=== PATIENT | female | born 1995 | race Caucasian/White ===

== ENCOUNTER 2017-01-11 22:03 | Emergency (ER) | payer OTHER ==
[2017-01-11] MEDS ORDERED: Sodium Chloride 0.9% 1000 ML 1,000 ML IV STA (22:44)
[2017-01-11 22:49] LABS: BASOPHIL % 0.6 % (0.0-0.4); Eosinophil % 7.9 % (0.00-5.0); Granulocytes % 36.2 % (36.0-66.0); Lymphocytes % 48.1 % (24.0-44.0); Mean Cell Volume 82.2 fl (78-100); Mean Corpuscular Hemoglobin 26.7 pg (26-32); Mean Platelet Volume 9.4 fl (6-9.5); Monocytes % 7.2 % (0.0-12.0); Platelet Count 209 K/mm3 (150-450); Red Blood Count 4.38 M/mm3 (4.1-5.4); Red Cell Distribution Width 13.8 % (11.5-14.0); White Blood Count 6.9 K/mm3 (4.0-10.5)
[2017-01-11] MEDS ORDERED: Sodium Chloride 0.9% 1000 ML 1,000 ML ONE (23:04)
[2017-01-11 23:42] LABS: Bacteria None Seen; Clue Cells None Seen; Trichomonas None Seen; Yeast None Seen
--- NOTE | 2017-01-11 23:44 | ERPHSYRPT ---
- History of Present Illness Time Seen by Provider: 01/11/17 22:35 Source: patient Exam Limitations: clinical condition Patient Subjective Stated Complaint: pt states she has been having light vaginal bleeding for a few days. states she began having cramping today and when she went to the bathroom she passed something that she stated looked like a mucous plug. states cramping has continued and rates 8/10 at times Triage Nursing Assessment: pt alert and oreinted, asnwers questions appop. pt ambulatory with steady gait noted. respirations nonlabored with bonita ngs cta. abd soft and nontender with bowel sounds present. urine min and clear. Physician History: PATIENT COMPLAINS OF PELVIC CRAMPING WITH VAGINAL BLEEDING LIKE A MENSES THE PAST FEW DAYS. HAS BEEN ON DEPO INJECTIONS THE PAST FEW MONTHS. DENIES FEVER, NAUSEA, EMESIS OR DIARRHEA. Timing/Duration: day(s) Activites at Onset: none Quality: cramping Onset Location: pelvic pain Pain Radiation: none Severity of Pain-Max: moderate Severity of Pain-Current: moderate Prior abdominal problems: none Sexual intercourse history: non-contributory Modifying Factors: Improves With: nothing Associated Symptoms: denies symptoms Allergies/Adverse Reactions: No Known Drug Allergies Allergy (Verified 01/11/17 22:42) Home Medications: Paroxetine HCl [Paxil] 10 mg PO DAILY 01/11/17 [History] Hx Tetanus, Diphtheria Vaccination/Date Given: No (unknown) Hx Influenza Vaccination/Date Given: Yes Hx Pneumococcal Vaccination/Date Given: No - Review of Systems Constitutional: No Fever, No Chills Respiratory: No Cough, No Dyspnea Cardiac: No Chest Pain, No Edema, No Syncope Genitourinary Symptoms: Vaginal Bleeding - Past Medical History Pertinent Past Medical History: No (healthy) Neurological History: No Pertinent History ENT History: No Pertinent History Cardiac History: No Pertinent History Respiratory History: Asthma Endocrine Medical History: No Pertinent History Musculoskeletal History: No Pertinent History GI Medical History: No Pertinent History History: No Pertinent History Psycho-Social History: No Pertinent History Female Reproductive Disorders: No Pertinent History - Past Surgical History Past Surgical History: Yes Neuro Surgical History: No Pertinent History Cardiac: No Pertinent History Respiratory: No Pertinent History Gastrointestinal: No Pertinent History Genitourinary: No Pertinent History Musculoskeletal: Orthopedic Surgery Female Surgical History: No Pertinent History Other Surgical History: ACL L knee repaired - Social History Smoking Status: Never smoker Exposure to second hand smoke: No Drug Use: none Patient Lives Alone: No (works at [employer]) - Female History Hx Last Menstrual Period: on depo shot Hx Now: No (not sexually active) - Nursing Vital Signs Nursing Vital Signs: Initial Vital Signs Temperature 98.7 F Temperature Source Oral Pulse Rate 69 Respiratory Rate 16 Blood Pressure [Right Arm] 101/61 Pain Intensity 4 - Physical Exam General Appearance: no apparent distress, alert Eye Exam: PERRL/EOMI, eyes nml inspection Ears, Nose, Throat Exam: normal ENT inspection, TMs normal, pharynx normal, moist mucous membranes Neck Exam: normal inspection, non-tender, supple, full range of motion Respiratory Exam: normal breath sounds, lungs clear, No respiratory distress Cardiovascular Exam: regular rate/rhythm, normal heart sounds, normal peripheral pulses Gastrointestinal/Abdomen Exam: soft, normal bowel sounds, tenderness ( SUPRAPUBIC TENDERNESS), No mass Pelvic Exam: normal external exam, other (THERE IS NO BLOOD IN VAGINAL VAULT, UTERUS NORMAL SIZE NONTENDER, NO ADNEXAL TENDERNESS) Back Exam: normal inspection, normal range of motion, No CVA tenderness, No vertebral tenderness Extremity Exam: normal inspection, normal range of motion, pelvis stable Neurologic Exam: alert, oriented x 3, cooperative, housekeeper child care II-XII nml as tested, normal mood/affect, sensation nml, No motor deficits Skin Exam: normal color, warm, dry Lymphatic Exam: No adenopathy SpO2 Interpretation: normal SpO2: 98 Oxygen Delivery: Room Air Ordered Tests: Active Orders 24 hr Category Date Time Status IV Insertion STAT Care 01/11/17 22:44 Active Pelvic Exam Assist STAT Care 01/11/17 22:58 Active CBC W DIFF Stat Lab 01/11/17 22:40 Completed CULTURE,URINE Stat Lab 01/11/17 22:55 Received HCG, Quantitative (Inhouse) Stat Lab 01/11/17 22:40 Completed UA W/ MICROSCOPIC Stat Lab 01/11/17 22:55 Completed Wet Prep Stat Lab 01/11/17 22:55 Completed Medication Summary Generic Name Dose Route Start Last Admin Trade Name Freq PRN Reason Stop Dose Admin Sodium Chloride 1,000 mls @ 500 mls/hr 01/11/17 22:44 01/11/17 23:12 Sodium Chloride 0.9% 1000 Ml IV 01/12/17 00:43 500 mls/hr .Q2H STA Administration Discontinued Medications Generic Name Dose Route Start Last Admin Trade Name [place] PRN Reason Stop Dose Admin Sodium Chloride Confirm 01/11/17 23:04 Sodium Chloride 0.9% 1000 Ml Administered 01/11/17 23:05 Dose 1,000 mls @ ud .ROUTE .STK-MED ONE Nitrofurantoin Macrocrystals 100 mg 01/12/17 00:10 Macrobid 100mg Capsule PO 01/12/17 00:11 STAT ONE Lab/Rad Data: Laboratory Result Diagrams 01/11/17 22:40 Laboratory Results 01/11/17 01/11/17 01/11/17 Range/Units 22:55 22:55 22:40 WBC (4.0-10.5) K/mm3 RBC (4.1-5.4) M/mm3 Hgb (12.0-16.0) gm/dl Hct (35-47) % MCV (78-100) fl MCH (26-32) pg MCHC (32-36) g/dl RDW (11.5-14.0) % Plt Count (150-450) K/mm3 MPV (6-9.5) fl Gran % (36.0-66.0) % Lymphocytes % (24.0-44.0) % Monocytes % (0.0-12.0) % Eosinophils % (0.00-5.0) % Basophils % (0.0-0.4) % Basophils # (0-0.4) Beta HCG, Quant < 1.0 (0-6) IU/L Ur Collection Type CCMS Urine Color YELLOW (YELLOW) Urine Appearance CLEAR (CLEAR) Urine pH 5.0 (5-6) Ur Specific [place] 1.025 (1.005-1.025) Urine Protein NEGATIVE (Negative) Urine Ketones NEGATIVE (NEGATIVE) Urine Blood NEGATIVE (0-5) Jesus/ul Urine Nitrite NEGATIVE (NEGATIVE) Urine Bilirubin NEGATIVE (NEGATIVE) Urine Urobilinogen NORMAL (0-1) mg/dL Ur Leukocyte Esterase 1+ (NEGATIVE) Urine Microscopic WBC 10-15 (0-5) /HPF Ur Epithelial Cells RARE (FEW) /HPF Urine Bacteria RARE (NEGATIVE) /HPF Urine Mucus SLIGHT (NEGATIVE) /HPF Urine Glucose NEGATIVE (NEGATIVE) mg/dL WBC (Wet Prep) Rare RBC (Wet Prep) None Seen Epi Cells (Wet Prep) Rare Bacteria (Wet Prep) None Seen Clue Cells (Wet Prep) None Seen Trichomonas (Wet Prep) None Seen Budding Yeast (Wet Prp) None Seen Specimen Received 01-11-17 [id number] 01/11/17 Range/Units 22:40 WBC 6.9 (4.0-10.5) K/mm3 RBC 4.38 (4.1-5.4) M/mm3 Hgb 11.7 L (12.0-16.0) gm/dl Hct 36.0 (35-47) % MCV 82.2 (78-100) fl MCH 26.7 (26-32) pg MCHC 32.5 (32-36) g/dl RDW 13.8 (11.5-14.0) % Plt Count 209 (150-450) K/mm3 MPV 9.4 (6-9.5) fl Gran % 36.2 (36.0-66.0) % Lymphocytes % 48.1 H (24.0-44.0) % Monocytes % 7.2 (0.0-12.0) % Eosinophils % 7.9 H (0.00-5.0) % Basophils % 0.6 (0.0-0.4) % Basophils # 0.04 (0-0.4) Beta HCG, Quant (0-6) IU/L Ur Collection Type Urine Color (YELLOW) Urine Appearance (CLEAR) Urine pH (5-6) Ur Specific [place] (1.005-1.025) Urine Protein (Negative) Urine Ketones (NEGATIVE) Urine Blood (0-5) Jesus/ul Urine Nitrite (NEGATIVE) Urine Bilirubin (NEGATIVE) Urine Urobilinogen (0-1) mg/dL Ur Leukocyte Esterase (NEGATIVE) Urine Microscopic WBC (0-5) /HPF Ur Epithelial Cells (FEW) /HPF Urine Bacteria (NEGATIVE) /HPF Urine Mucus (NEGATIVE) /HPF Urine Glucose (NEGATIVE) mg/dL WBC (Wet Prep) RBC (Wet Prep) Epi Cells (Wet Prep) Bacteria (Wet Prep) Clue Cells (Wet Prep) Trichomonas (Wet Prep) Budding Yeast (Wet Prp) Specimen Received - Progress Progress Note: 01/12/17 00:06 THE HCG, QT- <1.0 01/12/17 00:06 PATIENT GIVEN MACROBID 100MG ORALLY Counseled pt/family regarding: lab results, diagnosis, need for follow-up - Departure Time of Disposition: 00:07 Departure Disposition: Home Clinical Impression: URINARY TRACT INFECTION, DYSFUNCTIONAL UTERINE BLEEDING Condition: Stable Critical Care Time: No Referrals: BEV BARRERA [Primary Care Provider] - Additional Instructions: ANTIBIOTIC MACROBID 100MG TWICE DAILY FOR 10 DAYS. FOLLOWUP WITH YOUR FAMILY PHYSICIAN SCHEDULED. TYLENOL OR MOTRIN NEEDED FOR PAIN Prescriptions: Nitrofurantoin Macro 100 mg [Macrobid 100MG Capsule] 100 mg PO BID #20 capsule
[2017-01-11 23:46] LABS: Bilirubin NEGATIVE (NEGATIVE); Blood NEGATIVE Ery/ul (0-5); COMPLETE URINE MICROSCOPIC? YES; Collection Type CCMS; Epithelial Cells RARE /HPF (FEW); Glucose NEGATIVE (NEGATIVE); Leukocyte Esterase 1+ (NEGATIVE); Mucus SLIGHT /HPF (NEGATIVE)
[2017-01-11 23:47] LABS: ADD URINE CULTURE? YES (NO); Bacteria RARE /HPF (NEGATIVE)
[2017-01-12] MEDS ORDERED: Macrobid 100MG Capsule PO ONE (00:10)
[2017-01-12] MEDS ORDERED: Macrobid 100MG Capsule ONE (00:12)
[2017-01-12 00:36] VITALS: BP 112/76; PULSE 70; O2SAT 99
[2017-01-12 00:57] LABS: CHLAMYDIA DNA NEGATIVE
== END 2017-01-12 00:36 | disposition home or self-care (01) ==
LOC: ED 22:03
DX: N39.0 Urinary tract infection, site not specified (principal); N93.8 Other specified abnormal uterine and vaginal bleeding; R10.2 Pelvic and perineal pain
CPT/HCPCS: 36000; 36415; 81000; 84702; 85025; 87086; 87210; 87490; 87590; 96360; 99283; 99284; A9270-GY

== ENCOUNTER 2021-08-30 16:23 | Emergency (ER) | payer OTHER ==
[2021-08-30 16:40] VITALS: BP 105/72; PULSE 73; O2SAT 99
--- NOTE | 2021-08-30 16:46 | ERPHSYRPT ---
- History of Present Illness Time Seen by Provider: 08/30/21 16:40 Source: patient Exam Limitations: no limitations Patient Subjective Stated Complaint: pt here for left earache since yesterday, no drainage, Triage Nursing Assessment: pt alert, resp easy, skin w/d/p, face mask in place Physician History: Patient is a 26-year-old white female who presents with a left earache which started this morning she recently had her nose pierced and she says when she does that she always gets a sore throat and subsequent lady sometimes ear infections. There is pain in the left ear with any movement of the tragus. Timing/Duration: yesterday Severity: moderate ENT Location: ear (L), throat Prearrival Treatment: no prearrival treatment Modifying Factors: Improves With: nothing Associated Symptoms: ear pain (L), sore throat Allergies/Adverse Reactions: No Known Drug Allergies Allergy (Verified 01/11/17 22:42) Home Medications: PARoxetine HCl [Paxil] 10 mg PO DAILY 01/11/17 [History] Hx Tetanus, Diphtheria Vaccination/Date Given: No (unknown) Hx Influenza Vaccination/Date Given: Yes Hx Pneumococcal Vaccination/Date Given: No Immunizations Up to Date: Yes Travel Risk - International Travel Have you traveled outside of the country in past 3 weeks: No - Coronavirus Screening Are you exhibiting any of the following symptoms?: No Close contact with a COVID-19 positive Pt in past 14-21 Days: No - Vaccine Status Have you recieved a Covid-19 vaccination: No - Review of Systems Constitutional: No Fever, No Chills Eyes: No Symptoms Ears, Nose, & Throat: Ear Pain, Throat Pain Respiratory: No Cough, No Dyspnea Cardiac: No Chest Pain, No Edema, No Syncope Abdominal/Gastrointestinal: No Abdominal Pain, No Nausea, No Vomiting, No Diarrhea Genitourinary Symptoms: No Dysuria Musculoskeletal: No Back Pain, No Neck Pain Skin: No Rash Neurological: No Dizziness, No Focal Weakness, No Sensory Changes Psychological: No Symptoms Endocrine: No Symptoms All Other Systems: Reviewed and Negative - Past Medical History Pertinent Past Medical History: No (healthy) Neurological History: No Pertinent History ENT History: No Pertinent History Cardiac History: No Pertinent History Respiratory History: Asthma Endocrine Medical History: No Pertinent History Musculoskeletal History: No Pertinent History GI Medical History: No Pertinent History History: No Pertinent History Psycho-Social History: No Pertinent History Female Reproductive Disorders: No Pertinent History - Past Surgical History Past Surgical History: Yes Neuro Surgical History: No Pertinent History Cardiac: No Pertinent History Respiratory: No Pertinent History Gastrointestinal: No Pertinent History Genitourinary: No Pertinent History Musculoskeletal: Orthopedic Surgery Female Surgical History: No Pertinent History Other Surgical History: ACL L knee repaired - Social History Smoking Status: Never smoker Exposure to second hand smoke: No Drug Use: none Patient Lives Alone: No (works at [employer]) - Female History Hx Last Menstrual Period: 2 weeks ago Hx Now: No - Nursing Vital Signs Nursing Vital Signs: Initial Vital Signs Temperature 98.2 F 08/30/21 16:33 Pulse Rate 73 08/30/21 16:33 Respiratory Rate 18 08/30/21 16:33 Blood Pressure 105/72 08/30/21 16:33 O2 Sat by Pulse Oximetry 99 08/30/21 16:33 Pain Scale Pain Intensity 7 - Physical Exam General Appearance: no apparent distress, alert Eye Exam: bilateral eye: PERRL, EOMI Ear Exam: right ear: auricle normal, canal normal, TM normal, left ear: swelling, tenderness (There is tenderness and pain with any movement of the tragus the canal is also edematous) Nasal Exam: normal inspection Throat Exam: pharynx normal, moist mucus membranes, No tonsillar exudate Neck Exam: supple Cardiovascular/Respiratory Exam: normal breath sounds, regular rate/rhythm Abdominal Exam: non-tender, soft Neurologic Exam: alert, oriented x 3, sensation nml, No motor deficits Skin Exam: normal color, warm, dry SpO2 Interpretation: normal SpO2: 99 O2 Delivery: Room Air - Course Nursing assessment & vital signs reviewed: Yes - Progress Progress: unchanged - Departure Departure Disposition: Home Clinical Impression: Otitis externa Condition: Stable Critical Care Time: No Referrals: WILLIAM BRANDON MD [Primary Care Provider] - Follow up/PCP as directed Prescriptions: Amoxicillin 875 mg PO BID 7 Days #14 tablet Matti/Baci/Poly/Hc Ear Susp [Cortisporin Ear Drops 10 ml Suspension] 10 ml OT TID 5 Days #10 ml
== END 2021-08-30 17:11 | disposition home or self-care (01) ==
LOC: ED 16:23
DX: H60.92 Unspecified otitis externa, left ear (principal); J02.9 Acute pharyngitis, unspecified
CPT/HCPCS: 99283